=== PATIENT | male | born 1995 | race Caucasian/White ===

== ENCOUNTER 2017-12-23 02:23 | Emergency (ER) | payer BC ==
[~2017-12-23] VITALS: Ht 172.7 cm; Wt 82.4 kg
[2017-12-23 02:26] VITALS: TEMP 36.8; Ht 172.7 cm; Wt 82.4 kg
[2017-12-23] MEDS ORDERED: SODIUM CHLORIDE 0.9% 1000ML 1,000 ML IV STA (02:47)
[2017-12-23] MEDS ORDERED: KETOROLAC TROMETHAMINE 30 MG/ML VIAL IV STA (02:47)
[2017-12-23] MEDS ORDERED: ONDANSETRON INJ 2 MG/ML 2 ML VIAL IV STA (02:47)
--- NOTE | 2017-12-23 02:59 | EMERGENCY ROOM VISIT NOTE ---
History Report prepared by Candice: Rodríguez Noriega Under the Supervision of: Dr. Mery Singer D.O. First contact with patient: 02:32 Chief Complaint: KIDNEY STONE Stated Complaint: KIDNEY STONES History of Present Illness The patient is a 22 year old male who presents to the Emergency Room with complaints of worsening abdominal pain that began 2 hours ago. The patient describes significant left flank pain around the CVA. Patient states that he has a history of kidney stones. Patient states that he continually produces stones. He believes his kidney stones are made of calcium. He states his last 3 stones were passed using a stent procedure. He states his last CT scan was in the fall. He does not see a urologist in [place]. He has one in [place]. Patient has associated symptoms of vomiting and nausea. He does know of any other known health problems. He states that he has been getting over the flu this past week. He denies any known allergies. He is a [employer] student. Source of History: patient Onset: 2 hours ago Position: abdomen Timing: worsening Associated Symptoms: + nausea, + vomiting Review of Systems See HPI for pertinent positives & negatives. A total of 10 systems reviewed and were otherwise negative. Past Medical & Surgical Medical Problems: (1) Kidney stones Family History No pertinent family history. Social History Smoking Status: Never Smoker Occupation Status: [employer] student Current/Historical Medications Scheduled Tamsulosin Hcl (Flomax), 1 CAP PO DAILY Scheduled PRN Oxycodone/Acetaminophen 5MG/325MG (Percocet 5MG/325MG), 1-2 TABLETS PO Q6 PRN for Pain Allergies Coded Allergies: No Known Allergies (Unverified , 12/23/17) Physical Exam Vital Signs Date Time Temp Pulse Resp B/P (MAP) Pulse Ox O2 Delivery O2 Flow Rate FiO2 12/23/17 07:37 80 16 99/56 98 12/23/17 07:33 80 16 99/56 98 12/23/17 06:35 98 18 120/72 98 Room Air 12/23/17 04:17 97 16 98/56 97 Room Air 12/23/17 02:26 36.8 99 22 135/69 98 Room Air Physical Exam General: Patient appears extremely uncomfortable. HEENT: Head - normocephalic and atraumatic Pupils are equal, round, and reactive to light. Extraocular eye muscles are intact, and sclera are anicteric. Nose - moist nasal mucosa without discharge. Mouth - moist buccal mucosa. Oropharynx is nonerythematous and there is no tonsillar exudate or edema noted. Neck: Supple; no JVD, nuchal rigidity, cervical lymphadenopathy. Heart: Regular rate and rhythm. There is a normal S1 and S2 with no murmurs, clicks, or gallops appreciated. Lungs: Clear to auscultation bilaterally with no wheezes, rales, or rhonchi. Abdomen: Soft, left CVA tenderness, nondistended, with good bowel sounds. There are no palpable pulsatile masses or hepatosplenomegaly. There is no guarding, rigidity, or rebound noted. Extremities: No evidence of cyanosis, clubbing, or edema. There are easily palpable peripheral pulses. Skin: pale, warm, and diaphoretic with good turgor and no rashes. Medical Decision & Procedures ER Provider Diagnostic Interpretation: Radiology results as stated below per my review and the radiologist's interpretation: RENAL ULTRASOUND CLINICAL HISTORY: Left flank pain. COMPARISON STUDY: None. TECHNIQUE: Sonography of the kidneys and the urinary bladder was performed. FINDINGS: Right kidney is sonographically normal, measuring 10.5 x 4.8 x 5.4 cm. There is no right hydronephrosis. The left kidney measures 10.6 x 7.1 x 5.8 cm. There is moderate left hydronephrosis and moderate to marked dilatation of the distal left ureter. There are multiple suspected left renal calculi as well as suspected multiple calculi within the distal left ureter. However, a left ureteral jet is visualized. There is a 1 cm left renal cyst. IMPRESSION: 1. Moderate left hydronephrosis and moderate to marked dilatation of the distal left ureter. Left-sided nephrolithiasis and numerous suspected distal left ureteral calculi. However, left ureteral jet visualized. The degree of left ureteral dilatation raises the possibility of a chronic/congenital component with superimposed calculi. 2. No right hydronephrosis. Electronically signed by: Gabe Covington M.D. 12/23/2017 6:55 AM Laboratory Results 12/23/17 02:36 Red Blood Count 5.41, Mean Corpuscular Volume 86.5, Mean Corpuscular Hemoglobin 31.6, Mean Corpuscular Hemoglobin Concent 36.5, Mean Platelet Volume 9.5 12/23/17 02:36 Test 2/18/18 02:36 12/23/17 02:59 White Blood Count 13.68 K/uL (4.8-10.8) Red Blood Count 5.41 M/uL (4.7-6.1) Hemoglobin 17.1 g/dL (14.0-18.0) Hematocrit 46.8 % (42-52) Mean Corpuscular Volume 86.5 fL (80-100) Mean Corpuscular Hemoglobin 31.6 pg (25-34) Mean Corpuscular Hemoglobin Concent 36.5 g/dl (32-36) Platelet Count 326 K/uL (130-400) Mean Platelet Volume 9.5 fL (7.4-10.4) RDW Standard Deviation 37.5 fL (36.4-46.3) RDW Coefficient of Variation 11.8 % (11.5-14.5) Neutrophils % (Manual) 56.9 % Lymphocytes % (Manual) 30.3 % Variant Lymphocytes % (manual) 11.9 % Monocytes % (Manual) 0.9 % Neutrophils # (Manual) 7.78 K/uL (1.4-6.5) Total Absolute Neutrophils 7.78 K/uL (1.4-6.5) Lymphocytes # (Manual) 4.15 K/uL (1.2-3.4) Absolute Variant Lymphocytes 1.63 K/uL Total Absolute Lymphocytes 5.77 K/uL (1.2-3.4) Monocytes # (Manual) 0.12 K/uL (0.11-0.59) Anion Gap 14.0 mmol/L (3-11) Est Creatinine Clear Calc Drug Dose 114.3 ml/min Estimated GFR () 114.4 Estimated GFR (Non- 98.7 BUN/Creatinine Ratio 12.6 (10-20) Calcium Level 9.7 mg/dl (8.5-10.1) Urine Color YELLOW Urine Appearance CLEAR (CLEAR) Urine pH 5.5 (4.5-7.5) Urine Specific [place] 1.021 (1.000-1.030) Urine Protein NEG (NEG) Urine Glucose (UA) NEG (NEG) Urine Ketones 1+ (NEG) Urine Occult Blood 2+ (NEG) Urine Nitrite NEG (NEG) Urine Bilirubin NEG (NEG) Urine Urobilinogen NEG (NEG) Urine Leukocyte Esterase TRACE (NEG) Urine WBC (Auto) 1-5 /hpf (0-5) Urine RBC (Auto) 10-30 /hpf (0-4) Urine Hyaline Casts (Auto) 1-5 /lpf (0-5) Urine Epithelial Cells (Auto) 5-10 /lpf (0-5) Urine Bacteria (Auto) NEG (NEG) Laboratory results per my review. Medications Administered Medications (Trade) Dose Ordered Sig/Jennifer Route Start Time Stop Time Status Last Admin Dose Admin Ketorolac Tromethamine (Toradol Inj) 30 mg NOW STAT IV 12/23/17 02:47 12/23/17 02:48 DC 12/23/17 02:58 30 MG Ondansetron HCl (Zofran Inj) 4 mg NOW STAT IV 12/23/17 02:47 12/23/17 02:48 DC 12/23/17 02:57 4 MG Sodium Chloride 1,000 ml @ 999 mls/hr Q1H1M STAT IV 12/23/17 02:47 12/23/17 03:47 DC 12/23/17 02:57 999 MLS/HR Tamsulosin HCl (Flomax Cap) 0.4 mg NOW ONCE PO 12/23/17 07:15 12/23/17 07:16 DC 12/23/17 07:35 0.4 MG Procedure Sodium Chloride 1000 ml @ 999 mls/hr IV, Zofran Inj 4mg IV, Toradol Inj 30mg IV , and Flomax Cap 0.4mg PO. ED Course 0240: Past medical records reviewed. The patient was evaluated in room A4. A complete history and physical exam was performed. IV lock was established and labs were drawn as above. 0247: Sodium Chloride 1000 ml @ 999 mls/hr IV, Zofran Inj 4mg IV, and Toradol Inj 30mg IV 0505: Patient states his pain is 1/10 in severity. He states that he is feeling much better. 0715: Flomax Cap 0.4mg PO 0722: Upon reevaluation, patient is resting comfortably. I discussed findings and results with him. I advised him to follow up with urology. He verbalized agreement of the treatment plan. He was discharged home. Medical Decision The patient is a 22 year old male who presents to the ED with abdominal pain. Differential diagnosis includes pyelonephritis, ureteral colic, and obstructive uropathy. Lab results show white count = 13.6 , stable H&H, potassium = 3, normal renal function, glucose = 120, and urine 2+ blood and 1+ ketones. This is a 22-year-old male patient with a history of kidney stones who presents to the emergency department with severe left flank pain. The pain started approximately 2 hours ago. The patient has undergone multiple previous CT scans to evaluate his stones. I was concerned about the risk of radiation. I sent the patient for ultrasound which did show a cluster of stones or one stone measuring approximately 6 mm. The patient states that he has passed multiple stones in the past of similar size and would like to try to pass this on his own. He was given a dose of Flomax and will be prescribed Flomax and Percocet use as an outpatient. I have given him information for Dr. Perkins who is on- call for urology as he has no local urologist. The patient did not appear septic. He had no fever no leukocytosis or signs of urinary tract infection. He was told return to the emergency department if he developed any worsening symptoms or the pain was unbearable. [place] Drug Monitoring Program Search Results: no issues identified Medication Reconcilliation Current Medication List: was personally reviewed by me Blood Pressure Screening Patient's blood pressure: Normal blood pressure Blood pressure disposition: Did not require urgent referral Impression Primary Impression: Left ureteral calculus Scribe Attestation The scribe's documentation has been prepared under my direction and personally reviewed by me in its entirety. I confirm that the note above accurately reflects all work, treatment, procedures, and medical decision making performed by me. Departure Information Dispostion Home / Self-Care Prescriptions Oxycodone/Acetaminophen 5MG/325MG (PERCOCET 5MG/325MG) Tab 1-2 TABLETS PO Q6 Y for Pain, #20 TAB Prov: Mery Singer D.O. 12/23/17 Tamsulosin Hcl (FLOMAX) 0.4 Mg Cap 1 CAP PO DAILY for 30 Days, #14 CAP 5 Refills Prov: Mery Singer D.O. 12/23/17 Referrals No Doctor, Assigned (PCP) Forms HOME CARE DOCUMENTATION FORM, IMPORTANT VISIT INFORMATION Patient Instructions ED Stone Renal W Colic, Kidney Stones Expectant Therapy, My [facility] Additional Instructions Rest. Take plenty of clear liquids Take percocet - 1-2 tabs. every 6 hours for severe pain Take flomax as directed. Return to the ER for more severe pain, vomiting, or fever.
[2017-12-23 03:06] LABS: HEMATOCRIT 46.8 % (42-52); HEMOGLOBIN 17.1 g/dL (14.0-18.0); MEAN CELL VOLUME 86.5 fL (80-100); MEAN CORPUSCULAR HEMOGLOBIN 31.6 pg (25-34); MEAN CORPUSCULAR HGB CONC 36.5 g/dl (32-36); MEAN PLATELET VOLUME 9.5 fL (7.4-10.4); PLATELET COUNT 326 K/uL (130-400); RED CELL DISTRIBUTION WIDTH CV 11.8 % (11.5-14.5); RED CELL DISTRIBUTION WIDTH SD 37.5 fL (36.4-46.3); WHITE BLOOD COUNT 13.68 K/uL (4.8-10.8)
[2017-12-23 03:16] LABS: CALCIUM 9.7 mg/dl (8.5-10.1); CREATININE 1.07 mg/dl (0.60-1.40)
--- NOTE | 2017-12-23 06:56 | DIAGNOSTIC IMAGING REPORT ---
RENAL ULTRASOUND CLINICAL HISTORY: Left flank pain. COMPARISON STUDY: None. TECHNIQUE: Sonography of the kidneys and the urinary bladder was performed. FINDINGS: Right kidney is sonographically normal, measuring 10.5 x 4.8 x 5.4 cm. There is no right hydronephrosis. The left kidney measures 10.6 x 7.1 x 5.8 cm. There is moderate left hydronephrosis and moderate to marked dilatation of the distal left ureter. There are multiple suspected left renal calculi as well as suspected multiple calculi within the distal left ureter. However, a left ureteral jet is visualized. There is a 1 cm left renal cyst. IMPRESSION: 1. Moderate left hydronephrosis and moderate to marked dilatation of the distal left ureter. Left-sided nephrolithiasis and numerous suspected distal left ureteral calculi. However, left ureteral jet visualized. The degree of left ureteral dilatation raises the possibility of a chronic/congenital component with superimposed calculi. 2. No right hydronephrosis. Electronically signed by: Gabe Covington M.D. 12/23/2017 6:55 AM Dictated Date/Time: 12/23/2017 6:52 AM
[2017-12-23] MEDS ORDERED: TAMSULOSIN HCL 0.4 MG CAP PO ONE (07:15)
[2017-12-23] MEDS ORDERED: TAMS0.4C38 PO (07:16)
[2017-12-23] MEDS ORDERED: OXYC-57 PO (07:17)
[2017-12-23 07:37] VITALS: BP 99/56; PULSE 80; O2SAT 98
== END 2017-12-23 07:37 | disposition home or self-care (01) ==
LOC: C.EDB 02:24 → C.EDA 07:37
DX: N20.1 Calculus of ureter (principal)